=== PATIENT | female | born 2000 | race Caucasian/White ===

== ENCOUNTER → 2019-07-03 | Outpatient (CLI) | payer OTHER ==
[2019-07-03 08:30] VITALS: BP 112/61
[2019-07-03 09:04] LABS: ALBUMIN 3.7 gm/dl (3.1-4.5); ALKALINE PHOSPHATASE 97 U/L (45-117); BUN 9 mg/dl (7-24); CHLORIDE 107 mmol/L (98-107); CREATININE 0.63 mg/dL (0.55-1.02); FREE T4 0.82 ng/dl (0.76-1.46); POTASSIUM 3.8 mmol/L (3.5-5.1); SGOT/AST 18 IU/L (3-35); SGPT/ALT 27 U/L (12-78); SODIUM 139 mmol/L (136-145); T3 UPTAKE 33 % (31-39); TOTAL PROTEIN 7.7 gm/dL (6.4-8.2)
[2019-07-04 04:08] LABS: FOLLICLE STIMULATING HORMONE 4.6 mIU/mL (.); LUTEINIZING HORMONE 004283 4.2 mIU/mL (.); PROLACTIN 004465 16.3 ng/mL (4.8-23.3)
[2019-07-04 12:10] LABS: CORTISOL #3 21.4 ug/dL (Not Estab.); CORTISOL BASELINE 8.4 ug/dL (.)
== END | disposition home or self-care (01) ==
LOC: LAB 07:32 → INJECTION 08:00
PROVIDERS: Internal Medicine Endocrinology, Diabetes & Metabolism
DX: E27.40 Unspecified adrenocortical insufficiency (principal); E16.2 Hypoglycemia, unspecified